=== PATIENT | male | born 1955 | race Hispanic/Latino ===

== ENCOUNTER 2017-05-30 06:28 | Day surgery (SDC) | payer BC ==
[~2017-05-30] VITALS: Ht 170.2 cm; Wt 120.9 kg
[~2017-05-30 06:28] MED LIST: ASPI-555 PO; ATOR40TA69 PO; INS7030 SQ; METF10004 PO; VALS160T28 PO
[2017-05-30] MEDS ORDERED: SODIUM CHLORIDE 0.9% 1000ML 1,000 ML IV ONE (06:36)
[2017-05-30 06:42] VITALS: BP 134/72
[2017-05-30] MEDS ORDERED: HYDR12.54 PO (06:56)
[2017-05-30] MEDS ORDERED: PROPOFOL 10 MG/ML 20ML VIAL IV ONE (07:57)
[2017-05-30 08:23] VITALS: BP 82/50
== END 2017-05-30 09:00 | disposition home or self-care (01) ==
LOC: DAH 06:28 → ENDO 06:28
PROVIDERS: ATTEND Internal Medicine Gastroenterology
DX: Z12.11 Encounter for screening for malignant neoplasm of colon (principal); D12.2 Benign neoplasm of ascending colon; Z80.0 Family history of malignant neoplasm of digestive organs; I10 Essential (primary) hypertension; E78.5 Hyperlipidemia, unspecified; G47.33 Obstructive sleep apnea (adult) (pediatric); E11.9 Type 2 diabetes mellitus without complications; Z68.43 Body mass index [BMI] 50.0-59.9, adult; Z79.4 Long term (current) use of insulin; Z79.84 Long term (current) use of oral hypoglycemic drugs; Z79.899 Other long term (current) drug therapy; Z98.890 Other specified postprocedural states
CPT/HCPCS: 45380; 82948 ×2; 88305; A4606; J2704; J7030